=== PATIENT | female | born 1975 | race Two or more races ===

== ENCOUNTER 2017-02-15 16:15 | Emergency (ER) | payer OTHER ==
[~2017-02-15] VITALS: Ht 157.5 cm; Wt 69.5 kg
[2017-02-15 16:49] VITALS: BP 114/73
[2017-02-15 17:37] LABS: HEMATOCRIT 44.2 % (34.6-47.8); HEMOGLOBIN 14.9 g/dL (11.7-16.4); WHITE BLOOD COUNT 6.9 x10^3/uL (3.4-10)
[2017-02-15 17:40] LABS: ASPARTATE AMINO TRANSFERASE 70 U/L (15-37); BLOOD UREA NITROGEN 10 mg/dL (7-18)
== END 2017-02-15 19:48 | disposition home or self-care (01) ==
LOC: ED 19:45
DX: N93.8 Other specified abnormal uterine and vaginal bleeding (principal)
CPT/HCPCS: 36415; 76830; 80053; 81003; 84702; 85025; 86901; 99285

== ENCOUNTER → 2017-12-07 | Outpatient (CLI) | payer OTHER | END | disposition home or self-care (01) | LOC: CFH 15:29 | PROVIDERS: ATTEND Obstetrics & Gynecology | DX: Z12.31 Encounter for screening mammogram for malignant neoplasm of breast (principal) | CPT/HCPCS: 77067 ==

== ENCOUNTER → 2018-07-31 | Outpatient (CLI) | payer OTHER | END | disposition home or self-care (01) | LOC: CFH 07:03 | PROVIDERS: ATTEND Nurse Practitioner | DX: R10.9 Unspecified abdominal pain (principal); R11.0 Nausea; R74.8 Abnormal levels of other serum enzymes | CPT/HCPCS: 76700 ==